=== PATIENT | male | born 1950 | race Caucasian/White ===

== ENCOUNTER 2024-11-24 09:50 | Outpatient (AMB) | payer MEDICARE, MEDICAID, SELFPAY ==
--- NOTE | 2024-11-24 10:00 | HO.SPINEOV ---
Intake Visit Reasons: LBP L1-2 Bulging Intake Note: Mr. Panchal is here today c/o ongoing low back pain. MRI done @ [facility] (brought disc). 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 HPI: This 74-year-old male history of an L2-5 lumbar fusion and a thoracic decompression in the past for spinal cord compression. He had a total of 4 spinal surgeries in the past. He states that he had frequent falls and after her last fall 5 weeks ago he is unable to ambulate independently. He already had no use of his right leg after her stroke but now the left leg is weaker preventing him from ambulating. His strength is not deteriorating. He also states that he has less sensation in his legs from the waist down. He saw a neurosurgeon at [facility] who did not recommend surgery. He has been in and out of rehab facilities over the last year. He is overall a high-risk patient with COPD, previous stroke and cardiovascular compromise. On exam, he is in a wheelchair. He is able to lift his left leg against gravity. There is a grade 4/5 weakness of the iliopsoas on the left. Remainder of the muscles are grossly intact. The right leg shows no activity. Upper extremities are intact. This is a sensory level from the waist down. No pathological reflexes. An MRI of the lumbar spine at [facility] of 08/30/2024 shows severe spinal stenosis L1-L2 above the previous fusion. Impression/Plan: This patient is symptomatic from severe L1-L2 spinal stenosis. I told him in the family that a decompression is possible but that it most likely will not have an effect on his neurological function. I recommended a minimally invasive bilateral L1-L2 decompression from a unilateral approach. The other option would be of course to either do an L1-L2 decompression with extension of the instrumentation but in this patient with his premorbid condition laminotomy seems to be a reasonable choice. Unfortunately, my facility is limited for high-risk patients and therefore I recommended a tertiary facility where they could perform this minor outpatient procedure under better monitoring. Thank you for allowing me to participate in your patients care. total time spent was 50 minutes in counseling ,coordination of plan, personal review of imaging, surgical decision making and subsequent plan Morteza Cotter MD, PhD Spine Fellowship Trained Neurosurgeon Director, [facility] Coding Level of Care Code New Pt Level 4 (37236) Diagnoses Lumbar spinal stenosis due to adjacent segment disease after fusion procedure M48.061; M51.369; Z98.1
--- OUTSIDE RECORDS SUMMARY | 2024-11-24 10:06 | XMS_ITS | Clinical Summary ---
Author Organization [facility] Address [address] [place] [address] Care Team Providers Care Senior Sales Director Name Role Phone Ruiz Persaud Jr. Primary Care Provider [phone]- [phone] Allergies Active Allergy Reactions Criticality Noted Date Comments Methotrexate Pruritus (itching) 02/24/2018 Occurred many years ago, uncertain of date Medications Multiple Vitamins-Minera ls (MULTIVITAMIN MEN) Tab 1 DAILY Active Levothyroxine Sodium 150 MCG Tab 1 TABLET DAILY Active Metoprolol Succinate 200 MG TABLET SR 24 HR 1 TABLET DAILY Active Lisinopril 20 MG Tab 1 TABLET DAILY Active Atorvastatin Calcium 40 MG Tab 1 TABLET DAILY Active Furosemide 20 MG Tab 1 TABLET DAILY Active Allopurinol 300 MG Tab 1 TABLET DAILY Active Leflunomide 20 MG Tab 1 TABLET DAILY Active Apixaban (ELIQUIS) 5 MG Tab 1 TABLET TWICE DAILY Active Diltiazem HCl Coated Beads (CARTIA XT) 300 MG CAPSULE SR 24 HR 1 CAPSULE DAILY Active Immunizations Immunization Administration Dates Next Due Influenza Virus Vaccine Splt 6-35mo 2002,1 Influenza,injectable,MDCK, Prsrv Fr,Quad 018 Influenza,seasonal,trivalent ,preservative (FLUZONE MDV) 2002,03/26/1999 PPD/TST (Tuberculin Skin Test) 11/27/2002 PPV23 (Pneumovax) 03/30/2018,08/09/2003,08/09/19 04 Social History Tobacco Use Types Packs/Day Years Used Date Smoking Tobacco: Former Cigarettes Q uit: 02/25/1984 Smokeless Tobacco: Former Intimate Partner Violence Answer Date R ecorded Fear of Current or Ex-Partner Not on file Emotionally Abused Not on file 01/25/2023 Physically Abused Not on file 01/25/2023 Sexually Abused Not on file 01/25/2023 Feel Safe at Home Not on file 01/25/2023 Sex and Gender Information Value Date Recorded Sex Assigned at Not on file Legal Sex Male 8:45 PM EDT Gender Identity Not on file Sexual Orientation Not on file Last Filed Vital Signs Vital Sign Reading Time Taken Comments Blood Pressure 106/69 03/18/2018 2:00 PM EDT Pulse 62 03/18/2018 2:00 PM EDT Temperature 36.1 C (97 F) 03/18/2018 2:00 PM EDT Respiratory Rate 14 03/18/2018 2:00 PM EDT Oxygen Saturation - - Inhaled Oxygen Concentration - - Weight 115 kg (253 lb) 03/18/2018 2:00 PM EDT Height 177.8 cm (5' 10 ) 03/18/2018 2:00 PM EDT Body Mass Index 36.3 03/18/2018 2:00 PM EDT Plan of Treatment Health Maintenance Due Date Last Done Comments Hepatitis C Screening 1950 DTaP/Tdap/Td (1 - Tdap) 1967 Hep B (1 of 3 - Risk Dialysis 4-dose series) 1969 Zoster (Shingrix) (1 of 2) 1999 Abdominal Aorta Imaging 2014 Pneumococcal 50+ years (2 of 2 - PCV) 03/30/2019 03/30/2018, 08/09/2003, 08/09/2003 COVID-19 Vaccine (1 - 2023-25 season) 2024 RSV (1 - 1-dose 75+ series) 2024 Influenza (Season Ended) 2025 018, 2002, 2002, Additional history exists HPV Vaccine Aged Out No longer eligi ble based on patient's age to complete this topic Hep A Aged Out No longer eligi ble based on patient's age to complete this topic Hib Aged Out No longer eligi ble based on patient's age to complete this topic Meningococcal ACWY Aged Out No longer eligible based on patient's age to complete this topic Microalbumin Discontinued Zoster (Zostavax) Discontinued Insurance [employer] MEDICARE PREFERRED HMO Care Teams Senior Sales Director Relationship Specialty Start Date End Date Ruiz Persaud Jr. [address] [place] [id number] PCP - General 12/24/05
== END 2024-11-24 11:13 | disposition home or self-care (01) ==
PROVIDERS: Visit Provider Neurological Surgery
DX: M48.061 Spinal stenosis, lumbar region without neurogenic claudication (principal); M51.369 Other intervertebral disc degeneration, lumbar region without mention of lumbar back pain or lower extremity pain; Z98.1 Arthrodesis status
CPT/HCPCS: 99204

== ENCOUNTER → 2024-11-24 09:50 | Outpatient (BNVA) | payer MEDICARE, SELFPAY | PROVIDERS: Visit Provider Neurological Surgery | DX: M48.061 Spinal stenosis, lumbar region without neurogenic claudication (principal); M51.369 Other intervertebral disc degeneration, lumbar region without mention of lumbar back pain or lower extremity pain; Z98.1 Arthrodesis status | CPT/HCPCS: 99202 ==